=== PATIENT | male | born 1930 | race Caucasian/White ===

== ENCOUNTER 2016-12-13 15:52 | Inpatient (IN) | payer OTHER ==
[~2016-12-13] VITALS: Ht 172.7 cm; Wt 61.7 kg
[~2016-12-13 15:52] MED LIST: ADVAIR HFA120 INHALA IH; ASPIR-LOW81 MG PO; AZITHROMYCIN500 M1 PO; DUONEB 2.5-0.5 M3 ML AEROSOL; LEVAQUIN750 MG PO; LISINOPRIL-HCT1 EAC3 PO; LISINOPRIL20 MG PO; PANTOPRAZOLE SO40 MG PO; PRAVASTATIN SOD20 MG PO; PREDNISONE10 MG PO; PREDNISONE20 MG PO; PREDNISONE5 M1 PO; PREDNISONE50 MG PO; SPIRIVA1 INHALATI IH; TESSALON PERLE100 MG PO; TYLENOL REGULA325 MG PO
[2016-12-13 17:48] LABS: MCH 30.1 PG (29.0-34.0); MCHC 33.1 G/DL (30.0-36.0); MCV 90.9 FL (86-99); MEAN PLAT.VOLUME 9.5 uM^3 (9.0-12.4); PLATELET COUNT 139 K/uL (156-360); RBC DIS.WIDTH-SD 50.5 % (39-53); RED BLOOD COUNT 3.96 M/uL (4.00-5.50); WHITE BLOOD COUNT 10.6 K/uL (4.1-10.2)
[2016-12-13 18:06] LABS: CHLORIDE 102 mEq/L (99-109); POTASSIUM 4.2 mEq/L (3.7-5.4); SODIUM 138 mEq/L (136-147)
[2016-12-13 18:08] LABS: GLUCOSE 120 mg/dL (70-99)
[2016-12-13 18:09] LABS: ANION GAP 9 MEQ/L (2-14)
[2016-12-13 18:12] LABS: GFR ESTIMATE (CALCULATED) > 59 mL/min/; UREA NITROGEN (BUN) 17 mg/dL (9-23)
[2016-12-13 19:40] LABS: INTER. NORMALIZED RATIO 1.1; PROTHROMBIN TIME 10.7 (9.2-11.2); PTT 26.6 (25-32)
[2016-12-13 20:27] LABS: TROP-I INTERPRETATION NEGATIVE; TROPONIN-I 0.12 ng/mL (0.0-0.30)
[2016-12-13] MEDS ORDERED: BLOOD PRESSURE MED (22:18)
[2016-12-13] MEDS ORDERED: PLAVIX75 MG PO (22:20)
[2016-12-13] MEDS ORDERED: VENTOLIN HFA18 GM IH (22:21)
[2016-12-13] MEDS ORDERED: LISINOPRIL2.5 MG PO (22:21)
[2016-12-14 05:06] VITALS: BP 169/82
[2016-12-14 06:27] LABS: HEMATOCRIT 38.3 % (38.0-50.0); MCH 28.9 PG (29.0-34.0); MCHC 31.9 G/DL (30.0-36.0); MCV 90.8 FL (86-99); MEAN PLAT.VOLUME 9.7 uM^3 (9.0-12.4); PLATELET COUNT 132 K/uL (156-360); RBC DIS.WIDTH-SD 52.1 % (39-53); RED BLOOD COUNT 4.22 M/uL (4.00-5.50); WHITE BLOOD COUNT 7.9 K/uL (4.1-10.2)
[2016-12-14 06:38] LABS: TROP-I INTERPRETATION NEGATIVE
[2016-12-14 06:40] LABS: EOSINOPHIL (%) 0 % (0-5); IMMATURE GRANULOCYTE (%) 0.3 % (0.0-0.7); LYMPHOCYTE COUNT 0.2 K/uL (1.0-2.8); MONOCYTE (%) 0.5 % (3-12); NEUTROPHIL (%) 96.3 % (45-76); NEUTROPHIL COUNT 7.6 K/uL (1.8-6.4)
[2016-12-14 08:59] VITALS: BP 175/79
[2016-12-14 10:20] VITALS: BP 134/66
[2016-12-14 12:45] VITALS: BP 144/65
[2016-12-14 16:18] VITALS: BP 162/85
[2016-12-15] VITALS (7 sets, daily range): BP systolic 138–186; BP diastolic 70–95
[2016-12-15 06:31] LABS: ANION GAP 10 MEQ/L (2-14); CHLORIDE 97 MEQ/L (99-109); GFR ESTIMATE (CALCULATED) > 59 mL/min/; GLUCOSE 153 mg/dL (70-99); POTASSIUM 3.6 MEQ/L (3.7-5.4); SAMPLE HEMOLYSIS CHECK 0; SAMPLE ICTERIC CHECK 0; SAMPLE LIPEMIA CHECK 0; SODIUM 137 MEQ/L (136-147); UREA NITROGEN (BUN) 24 mg/dL (9-23)
[2016-12-15 06:50] LABS: EOSINOPHIL (%) 0 % (0-5); HEMATOCRIT 37.2 % (38.0-50.0); IMMATURE GRANULOCYTE (%) 0.3 % (0.0-0.7); LYMPHOCYTE COUNT 0.4 K/uL (1.0-2.8); MCH 29.2 PG (29.0-34.0); MCHC 32.5 G/DL (30.0-36.0); MCV 89.6 FL (86-99); MEAN PLAT.VOLUME 9.9 uM^3 (9.0-12.4); MONOCYTE (%) 2.1 % (3-12); MONOCYTE COUNT 0.3 K/uL (0-0.8); NEUTROPHIL (%) 95.1 % (45-76); NEUTROPHIL COUNT 14.6 K/uL (1.8-6.4); PLATELET COUNT 135 K/uL (156-360); RBC DIS.WIDTH-CV 15.9 % (11.8-14.6); RBC DIS.WIDTH-SD 51.6 % (39-53); RED BLOOD COUNT 4.15 M/uL (4.00-5.50)
[2016-12-15 06:52] LABS: WHITE BLOOD COUNT 15.4 K/uL (4.1-10.2)
[2016-12-16 07:56] VITALS: BP 163/83
[2016-12-16 16:02] VITALS: BP 140/76
[2016-12-16 23:06] VITALS: BP 141/65
[2016-12-17 06:43] LABS: MCH 29.9 PG (29.0-34.0); MCHC 32.6 G/DL (30.0-36.0); MCV 91.8 FL (86-99); MEAN PLAT.VOLUME 10.4 uM^3 (9.0-12.4); PLATELET COUNT 114 K/uL (156-360); RBC DIS.WIDTH-CV 16.9 % (11.8-14.6); RBC DIS.WIDTH-SD 56.3 % (39-53); RED BLOOD COUNT 4.25 M/uL (4.00-5.50); WHITE BLOOD COUNT 13.1 K/uL (4.1-10.2)
[2016-12-17 07:08] LABS: ANION GAP 8 MEQ/L (2-14); CHLORIDE 99 MEQ/L (99-109); GFR ESTIMATE (CALCULATED) > 59 mL/min/; POTASSIUM 4.2 MEQ/L (3.7-5.4); SAMPLE HEMOLYSIS CHECK 0; SAMPLE ICTERIC CHECK 0; SAMPLE LIPEMIA CHECK 0; SODIUM 139 MEQ/L (136-147); UREA NITROGEN (BUN) 26 mg/dL (9-23)
[2016-12-17 07:17] LABS: GLUCOSE 112 mg/dL (70-99)
[2016-12-17 08:00] VITALS: BP 128/74
[2016-12-17 17:04] VITALS: BP 140/88
[2016-12-17 23:17] VITALS: BP 152/74
[2016-12-18 08:29] VITALS: BP 162/85
[2016-12-18 12:03] VITALS: BP 168/85
[2016-12-18 16:31] VITALS: BP 136/66
[2016-12-18 23:39] VITALS: BP 169/82
[2016-12-19 08:00] VITALS: BP 143/64
[2016-12-19 19:05] VITALS: BP 176/73
[2016-12-20 00:08] VITALS: BP 153/89
[2016-12-20 09:04] VITALS: BP 159/70
[2016-12-20 16:09] VITALS: BP 176/81
[2016-12-20 23:05] VITALS: BP 173/90
[2016-12-21 00:31] VITALS: BP 171/79
[2016-12-21 07:10] VITALS: BP 173/88
[2016-12-21 15:25] VITALS: BP 164/77
[2016-12-21 23:34] VITALS: BP 164/80
[2016-12-22 07:15] VITALS: BP 154/76
[2016-12-22 16:00] VITALS: BP 167/72
[2016-12-22 23:05] VITALS: BP 180/76
[2016-12-23 00:25] VITALS: BP 135/67
[2016-12-23 07:15] VITALS: BP 120/65
[2016-12-23] MEDS ORDERED: DELTASONE20 M1 PO (10:25)
[2016-12-23 15:21] VITALS: BP 147/86
[2016-12-23 18:22] VITALS: BP 147/86
[2016-12-23 22:19] VITALS: BP 131/62
[2016-12-24 08:35] VITALS: BP 145/64
[2016-12-24 09:45] VITALS: BP 142/62
[2016-12-24 15:32] VITALS: BP 155/71
== END 2016-12-24 18:20 | disposition home health service (06) | DRG 192 ==
LOC: EME 15:52 → EDOF 12-14 01:00 → 5WEST 12-14 03:53 → 5EAST 12-14 12:17 → 5WEST 12-14 12:17 → 5EAST 12-15 22:02
PROVIDERS: Hospitalist; Internal Medicine; Physician Assistant Medical
DX: J44.1 Chronic obstructive pulmonary disease with (acute) exacerbation (principal); I35.0 Nonrheumatic aortic (valve) stenosis; J44.0 Chronic obstructive pulmonary disease with (acute) lower respiratory infection; N18.2 Chronic kidney disease, stage 2 (mild); I16.0 Hypertensive urgency; I12.9 Hypertensive chronic kidney disease with stage 1 through stage 4 chronic kidney disease, or unspecified chronic kidney disease; Z95.0 Presence of cardiac pacemaker; I25.10 Atherosclerotic heart disease of native coronary artery without angina pectoris; K21.9 Gastro-esophageal reflux disease without esophagitis; Z87.891 Personal history of nicotine dependence; E78.5 Hyperlipidemia, unspecified; J20.9 Acute bronchitis, unspecified
CPT/HCPCS: 71020; 80048; 84484; 85025; 85027; 85610; 85730; 87070; 87205; 93005; 94640; 94640 76; 94760; 94799; 99202; 99281; 99285; J0360; J0456; J1644; J2543; J2920; J2930; J7050; J7512